=== PATIENT | female | born 1955 | race African-American/Black ===

== ENCOUNTER 2019-01-14 20:48 | Observation (INO) ==
[2019-01-14] MEDS ORDERED: TYLENOL PO ONE (21:28)
[2019-01-14 22:25] LABS: INFLUENZA A NEGATIVE (NEGATIVE); INFLUENZA B NEGATIVE (NEGATIVE)
[2019-01-14 23:43] LABS: BASO# 0.02 X1000 (0.0-0.2); BASO% 0.2 % (0.0-0.8); EOS# 0.01 X1000 (0.0-0.7); EOS% 0.1 % (0.0-10.0); IMM GRAN# 0.03 X1000 (0.0-0.04); IMM GRAN% 0.2 % (0.0-0.5); LYMPH# 1.19 X1000 (1.2-3.4); LYMPH% 9.8 % (20.5-51.1); MCHC 32.5 g/dL (33-37); MCV 70.8 FL (81-99); MONO# 1.06 X1000 (0.11-0.59); MONO% 8.7 % (1.7-9.3); MPV 10.4 FL (7.4-10.4); NEUT# 9.88 X1000 (1.4-6.5); PLT 262 X1000 (130-400); RBC 5.65 XMIL (4.2-5.4); RDW 17.7 % (11.5-14.5); WBC 12.19 X1000 (4.8-10.8)
[2019-01-14 23:56] LABS: URINE SOURCE CATH
[2019-01-15 00:02] LABS: ALBUMIN 3.5 g/dL (3.5-5.0); CALCIUM 8.7 mg/dL (8.8-10.2); CREATININE 1.1 mg/dL (0.5-0.9); POTASSIUM 4.2 mmol/L (3.5-5.1); TOTAL BILIRUBIN 0.8 mg/dL (0.20-1.00)
[2019-01-15 00:06] LABS: BANDS 2 % (0-1); LYMPHS 6 % (21-51); MONO 4 % (1-9); SEGS 88 % (42-75)
[2019-01-15 00:07] LABS: ANISOCYTOSIS OCCASIONAL; HYPOCHROM OCCASIONAL; POLYCHROM OCCASIONAL
[2019-01-15 00:08] LABS: MICROCYTOSIS OCCASIONAL; POIKILOCYTOSIS OCCASIONAL; STOMATOCYTES OCCASIONAL; TARGET CELLS OCCASIONAL
[2019-01-15] MEDS ORDERED: NS IV ONE (00:11)
[2019-01-15 00:39] LABS: BILIRUBIN URINE NEGATIVE (NEGATIVE); BLOOD URINE 2+ (NEGATIVE); CLARITY CLEAR (CLEAR); COLOR YELLOW; GLUCOSE URINE NEGATIVE (NEGATIVE); KETONE URINE 1+(Small) mg/dL (NEGATIVE); LEUKOCYTES URINE NEGATIVE (NEGATIVE); NITRITE URINE NEGATIVE (NEGATIVE); PROTEIN URINE NEGATIVE (NEGATIVE); UROBILINOGEN URINE NORMAL
[2019-01-15 00:45] LABS: URINE BACTERIA 2+ /HFP; URINE EPITHELIAL CELLS <10 /HPF (<10); URINE RBC <10 /HPF (<10); URINE WBC <10 /HPF (<10)
[2019-01-15] MEDS ORDERED: VANCOMYCIN IV PER PHARMACY MISC SCH (01:15)
--- NOTE | 2019-01-15 01:22 | PROVIDER DOCUMENTATION ---
This chart was entered by Teetee Flanagan Scribe, acting as scribe for Heri Mosqueda CRNP. HPI-General Adult - General Chief Complaint: Fever Stated Complaint: pain all over Time Seen by Provider: 01/14/19 21:54 Source: patient Allergies/Adverse Reactions: Patient Allergies Allergy/AdvReac Type Severity Reaction Status Date / Time Penicillins Allergy Intermediate "welts" Verified 01/14/19 22:11 Home Medications: Home Medication List Medication Instructions Recorded Confirmed Last Taken Type Bisoprolol Fumarate [Zebeta] 5 mg PO BID 06/24/12 01/14/19 01/18/18 11:00 History Irbesartan [Avapro] 300 mg PO DAILY 06/24/12 01/14/19 01/18/18 11:00 History PRAVAstatin [Pravachol] 40 mg PO QHS 06/24/12 01/14/19 01/17/18 01:00 History Tizanidine HCl [Zanaflex] 2 mg PO BID PRN 06/24/12 01/14/19 01/17/18 01:00 History Topiramate [Topamax] 50 mg PO QHS 06/24/12 01/14/19 01/17/18 01:00 History Trazodone [Desyrel] 50 mg PO HS PRN PRN 01/03/13 01/14/19 01/17/18 01:00 History Albuterol Sulfate Inhaler 2 puff INH Q4H PRN #1 inhaler 05/27/13 01/14/19 02/04/17 20:00 Rx [Ventolin Hfa] Furosemide [Lasix] 80 mg PO DAILY 06/27/13 01/14/19 01/18/18 11:00 History Alprazolam [Xanax] 0.5 mg PO QHS 09/30/13 01/14/19 01/17/18 01:00 History Cyclobenzaprine [Flexeril] 10 mg PO Q6H PRN PRN #20 tablet 09/20/14 01/14/19 01/18/18 11:00 Rx Tramadol HCl [Ultram] 50 mg PO Q6H PRN PRN 09/20/14 01/14/19 01/17/18 01:00 History Zolpidem C.r. [Ambien Cr] 6.25 mg PO QHS 08/03/15 01/14/19 01/17/18 01:00 History Allopurinol 100 mg PO HS 03/07/16 01/14/19 01/17/18 01:00 History Indomethacin 50 mg PO BID #10 capsule 03/07/16 01/14/19 01/18/18 11:00 Rx Metoclopramide [Reglan] 5 mg PO BID PRN 03/07/16 01/14/19 06/02/16 08:00 History Budesonide/Formoterol Inhaler 2 puff INH RTBID 02/05/17 01/14/19 01/18/18 11:00 History [Symbicort 160/4.5 Microgm Inhaler] Ergocalciferol (Vitamin D2) 50,000 unit PO DAILY 02/05/17 01/14/19 01/18/18 11:00 History [Vitamin D] Febuxostat [Uloric] 1 tab PO EVERY OTHER DAY 02/05/17 01/14/19 01/18/18 11:00 History Pantoprazole [Protonix] 40 mg PO DAILY 02/05/17 01/14/19 01/18/18 11:00 History Gabapentin [Neurontin] 300 mg PO DAILY #14 cap 11/23/17 01/14/19 01/18/18 11:00 Rx Meloxicam [Mobic] 15 mg PO DAILY #20 tab 01/18/18 01/14/19 Unknown Rx Cetirizine HCl [Zyrtec] 10 mg PO DAILY 07/30/18 01/14/19 Unknown History Meclizine [Antivert] 25 mg PO TID PRN 07/30/18 01/14/19 Unknown History Potassium Chloride 10 meq PO BID 07/30/18 01/14/19 Unknown History Naproxen [Naprosyn] 500 mg PO BID #20 tab 10/03/18 01/14/19 Unknown Rx - History of Present Illness -Gen Adult Nature of Presenting Problems: pt is a 64 yr old female presenting via EMS with complaint of weakness, bilateral knee pain and swelling, pt reports hx of chronic bilateral knee pain. pt also complains of cough. pt denies chest pain or shortness of breath. hx of chronic knee pain. pt reports unable to stand or ambulate today due to pain/weakness Location of Pain/Injury: reports: lower extremity (bilateral knee pain) Pain Radiation: reports: no radiation Quality of Pain: reports: aching, tightness Severity: reports: severe Onset/Duration: reports: gradual Timing: reports: getting worse Context/Activities at Onset: reports: rest Modifying Factors: improves with: movement (worsens pain) Associated Symptoms: reports: cough, fatigue, fever/chills, joint pain, weakness , other (edema). denies: back/neck pain, chest pain, headaches, shortness of breath Similar Symptoms Previously?: Yes Review of Systems - Adult - REVIEW OF SYSTEMS - ADULT Constitutional: reports: fever, fatique Eyes: denies: discharge, redness Ears, Nose, Mouth & Throat: denies: ear pain, sinus problem, throat pain Cardiovascular: reports: edema. denies: chest pain, palpitations, syncope Respiratory: reports: chronic cough, cough. denies: shortness of breath, wheezing Gastrointestinal: denies: abdominal pain, diarrhea, nausea, vomiting Genitourinary: denies: dysuria, frequency, flank pain Musculoskeletal: reports: joint pain, muscle aches, muscle weakness. denies: back pain Integumentary: reports: no symptoms reported Neurological: denies: dizziness/vertigo, syncope Psychiatric: reports: no symptoms reported Endocrine: reports: no symptoms reported Hematologic/Lymphatic: reports: no symptoms reported Allergic/Immunologic: reports: no symptoms reported All Other Systems: Reviewed and Negative Past History - Adult - PAST MEDICAL HISTORY-ADULT Review of Records: reports: Old Records Reviewed, Nursing Assessment Review, Medications Reviewed, Social history reviewed & non-contributory. Major Childhood Illnesses: reports: denies history Cardiovascular: reports: denies history, CHF, HTN Respiratory: reports: denies history, asthma, COPD, sleep apnea Gastrointestinal: reports: denies history, GERD Obstetrical/Gynecological: reports: denies history Genitourinary: reports: denies history, kidney disease (CKD) Musculoskeletal: reports: denies history, other (gout; neuropathy; Bakers cysts in bilateral knees) Neurological: reports: denies history, headaches/migraines, TIA Psychiatric: reports: anxiety, bipolar Endocrine/Immune: reports: denies history, Diabetes Other Conditions: reports: denies history - PRIOR SURGERIES/PROCEDURES Surgical/Procedure History: reports: hysterectomy, BTL, , tonsillectomy , other (stomach ulcers; hemorrhoids ) - IMMUNIZATION STATUS Childhood Immunizations: See Nurse Assessment Flu Vaccine: See Nurse Assessment - FAMILY HISTORY Family History: reviewed, not pertinent - SOCIAL HISTORY Smoking: quit greater than 1 year Substance Use: denies Living Situation: family Physical Exam-General - PHYSICAL EXAM-ADULT Initial Vital Signs Reviewed: Yes - CONSTITUTIONAL General Appearance: alert, no apparent distress, obese - EYES Eyes: PERRL/EOMI - HEAD, EARS, NOSE, MOUTH & THROAT HENMT: normocephalic/atraumatic, moist mucous membranes, normal ENT inspection - NECK Neck: non-tender, full range of motion, supple, normal inspection - RESPIRATORY Respiratory: chest non-tender, lungs clear, normal breath sounds, no pleuratic chest pain, no respiratory distress, no accessory muscle use - CARDIOVASCULAR Cardiovascular: normal peripheral pulses, tachycardia, other (BLE edema) - GASTROINTESTINAL (ABDOMEN) Abdominal Exam: normal bowel sounds, non tender, soft - LYMPHATIC Lymphatic: no adenopathy - MUSCULOSKELETAL Back Exam: normal inspection, no CVA tenderness, no vertebral tenderness Extremity: inflammation (bilateral knees), pedal edema. negative: normal gait (pt refuses to stand or attempt to ambulate) - SKIN Integumentary: normal color, normal turgor, warm/dry - NEUROLOGIC Neurologic: grossly normal - PSYCHIATRIC Psych/Mental Status: normal mood/affect Progress - PLAN OF CARE/RESULTS Progress/Plan/Lab Results: Vital Signs - 8 hr 01/14/19 21:23 Temperature 101.9 F H Pulse Rate 114 H Respiratory Rate 18 Blood Pressure 162/101 O2 Sat by Pulse Oximetry 94 L Laboratory Results - last 24 hr 01/14/19 21:27 Influenza A (Rapid) NEGATIVE Influenza B (Rapid) NEGATIVE Orders Category Date Time Status INFLUENZA SCREEN PL Stat Lab 01/14/19 21:27 Completed Acetaminophen [Tylenol] Med 01/14/19 21:28 Discontinued 1,000 mg PO NOW ONE COnsulted Dr. Olivo recommended IV vanc pharmacy dosing, and agreed to admit the pt. Result Diagrams: 01/14/19 23:25 01/14/19 23:25 - CONSULTS/PCP/HOSPITALIST Notification #1 *Consult/PCP/Hospitalist*: Dr. Olivo Time Discussed: 01:20 Reason/Comments: Admission for SIRS Consult Disposition: Admit Departure - Departure Date of Disposition Decision: 01/15/19 Time of Disposition Decision: 01:20 DIAGNOSIS: SIRS (systemic inflammatory response syndrome), Knee pain, acute Disposition: ADMITTED INPATIENT 09 Certified Medical Emergency: Emergent Condition: Stable Referrals and Follow-Ups: None,PCP [Primary Care Provider] - - Critical Care Note This patient required my direct & personal management of CC.: No Attestation - Physician/ ROBBIE Attestation Patient care was provided by Advanced Practice Provider:: Yes Advanced Practice Provider:: Heri Mosqueda Advanced Practice Provider documentation review:: The Mid-level provider documentation, treatment plan and medical decision making was reviewed by the physician who agrees with all treatment and medical decision making by the MLP. The physician spent face to face time with patient:: No Advanced Practice Provider documentation review:: Supervising physician onsite and consulted in the evaluation and care of this patient. The physician did not have a face to face encounter with the patient. This chart was documented by the indicated scribe, (Teetee Flanagan Scribe) and accurately reflects the services I performed and decisions made by , Heri Mosqueda CRNP, as attested by the provider's signature.
[2019-01-15] MEDS ORDERED: VANCOMYCIN 1 GM/NS 1 GM/250 ML IVPB IV ONE ×2 (02:00→04:00)
[2019-01-15] MEDS ORDERED: VANCOMYCIN 500 MG/NS 500 MG/100 ML IVPB IV ONE (05:00)
--- NOTE | 2019-01-15 07:01 | Diag Imaging Result Doc PS360 ---
EXAM: KNEE 3 VIEWS LEFT - 01/14/2019 HISTORY: pain TECHNIQUE: Left knee three views COMPARISON: 05/20/2015 FINDINGS: There are moderate to severe osteoarthritic changes, with substantial progression compared to prior. There is no fracture or dislocation identified. IMPRESSION: Moderate to severe osteoarthritic changes. Electronically signed by Ravi Mendez 01/15/2019 6:58 AM
--- NOTE | 2019-01-15 07:03 | Diag Imaging Result Doc PS360 ---
EXAM: KNEE 3 VIEWS RIGHT - 01/14/2019 HISTORY: pain TECHNIQUE: Right knee three views COMPARISON: None. FINDINGS: There are moderate osteoarthritic changes. These are most prominent at the patellofemoral joint. There is no fracture or dislocation identified. There is thickening of the suprapatellar bursa suggesting joint effusion. There are a few atherosclerotic calcifications noted. IMPRESSION: Moderate osteoarthritic changes. Electronically signed by Ravi Mendez 01/15/2019 7:01 AM
--- NOTE | 2019-01-15 07:06 | Diag Imaging Result Doc PS360 ---
EXAM: CHEST-2 VIEWS - 01/14/2019 HISTORY: cough, fever TECHNIQUE: Chest two views COMPARISON: 07/30/2018 FINDINGS: Heart size is normal. There is some tortuosity of the thoracic aorta similar to prior. Inspiration is mildly shallow. The lungs appear clear. There is no consolidation, pleural effusion, or pneumothorax identified. There is some thoracic spondylosis noted. IMPRESSION: Mildly shallow inspiration. No other evidence of acute disease. Electronically signed by Ravi Mendez 01/15/2019 7:03 AM
[2019-01-15 07:44] LABS: MAGNESIUM 1.5 mg/dL (1.5-2.7)
[2019-01-15 08:12] LABS: INR 1.1; PROTIME 14.8 Seconds (11.0-16.0)
[2019-01-15 08:13] LABS: PTT 32.8 Seconds (22.3-41.8)
[2019-01-15] MEDS: NORCO-7.5 PO PRN ×2 (09:17→20:40)
[2019-01-15] MEDS ORDERED: ZOFRAN IV PRN (09:33)
[2019-01-15] MEDS ORDERED: TYLENOL PO PRN (09:33)
[2019-01-15] MEDS ORDERED: DESYREL PO PRN (09:34)
[2019-01-15] MEDS ORDERED: FLEXERIL PO PRN (09:34)
[2019-01-15] MEDS ORDERED: ANTIVERT PO PRN (09:34)
[2019-01-15] MEDS ORDERED: ULTRAM PO PRN (09:34)
--- NOTE | 2019-01-15 10:09 | Diag Imaging Result Doc PS360 ---
EXAM: CHEST-PORTABLE - 01/15/2019 HISTORY: follow up TECHNIQUE: Portable chest COMPARISON: 01/24/2019 FINDINGS: Heart size is normal. Inspiration is mildly shallow, the projection is mildly lordotic. Lungs appear grossly clear. There is no substantial pleural effusion or pneumothorax identified. IMPRESSION: Mildly shallow inspiration. No other discrete evidence of acute disease. Electronically signed by Ravi Mendez 01/15/2019 10:06 AM
[2019-01-15 11:01] LABS: BASO# 0.02 X1000 (0.0-0.2); BASO% 0.2 % (0.0-0.8); EOS# 0.06 X1000 (0.0-0.7); EOS% 0.7 % (0.0-10.0); HEMATOCRIT 35.4 % (37.0-47.0); HEMOGLOBIN 11.2 g/dL (12.0-16.0); IMM GRAN# 0.02 X1000 (0.0-0.04); IMM GRAN% 0.2 % (0.0-0.5); LYMPH# 1.73 X1000 (1.2-3.4); LYMPH% 19.1 % (20.5-51.1); MCH 22.8 PG (27-31); MCHC 31.6 g/dL (33-37); MONO% 8.8 % (1.7-9.3); MPV 10.3 FL (7.4-10.4); NEUT# 6.44 X1000 (1.4-6.5); PLT 235 X1000 (130-400); RBC 4.92 XMIL (4.2-5.4); RDW 17.9 % (11.5-14.5); WBC 9.07 X1000 (4.8-10.8)
[2019-01-15 11:20] LABS: AGAP 9; ALBUMIN 2.8 g/dL (3.5-5.0); ALKALINE PHOSPHATASE 168 U/L (32-104); BUN 15 mg/dL (8-22); CALCIUM 8.3 mg/dL (8.8-10.2); CHLORIDE 106 mmol/L (98-107); COSMO 282; CREATININE 0.9 mg/dL (0.5-0.9); ESTIMATED GFR > 60; GLUCOSE 159 mg/dL (70-104); GOT 15 U/L (10-30); GPT 17 U/L (10-36); POTASSIUM 3.8 mmol/L (3.5-5.1); SODIUM 139 mmol/L (136-145); TCO2 23 mmol/L (25-35); TOTAL PROTEIN 6.3 g/dL (6.3-8.3)
[2019-01-15 12:00] LABS: ANISOCYTOSIS 2+; LYMPHS 18 % (21-51); MICROCYTOSIS 1+; MONO 5 % (1-9); SEGS 77 % (42-75)
[2019-01-15] MEDS: NS 1,000 ML IV SCH (13:12)
[2019-01-15] MEDS: LEVAQUIN 500 MG/D5W 500 MG/100 ML IVPB IV SCH (13:59)
--- NOTE | 2019-01-15 14:01 | HISTORY AND PHYSICAL ---
PRIMARY CARE PROVIDER: None. ORTHOPEDIST: Dr. Pepper in [place]. CHIEF COMPLAINT: Bilateral knee pain, shallow breathing, and palpitations. HISTORY OF PRESENT ILLNESS: Ms. Le is a 64-year-old female with a past medical history of diabetes mellitus type 2, diabetic peripheral neuropathy, chronic kidney disease, hypertension, asthma, dyslipidemia, chronic pain, GERD, obstructive sleep apnea, depression and anxiety, obesity, and peptic ulcer disease with history of previous GI bleed, who reported to the ED for bilateral knee pain, shallow breathing and heart palpitations. She reported that sometimes her bilateral knee pain is so bad she is unable to walk at home. She has had some urine urgency and frequency, but denies any dysuria. She denies any feeling like she had a fever or chills. However, in the ER last night, she had a fever of 101.9. She was found to be tachycardic with a slightly elevated white count, and a urinalysis that had 2+ bacteria. She was admitted for probable sepsis and given IV fluids and initiated on IV antibiotics. She did gave several normal lactates. Her white count is back down to normal. Flu A and B were negative. Chest x-ray was clear. Left knee x-ray showed moderate to severe osteoarthritic changes. Right knee x-ray shows moderate osteoarthritic changes. She denies any headache, fever, chills, chest pain, shortness of breath at this time, nausea, vomiting, or diarrhea, and will continue treatment on medical telemetry. REVIEW OF SYSTEMS: A 14 point review of systems completely negative except for those mentioned in HPI. PAST MEDICAL HISTORY: 1. Diabetes mellitus type 2. 2. Diabetic peripheral neuropathy. 3. Chronic kidney disease. 4. Hypertension. 5. Asthma. 6. Dyslipidemia. 7. Chronic pain. 8. Gastroesophageal reflux disease. 9. Obstructive sleep apnea. 10. Depression and anxiety. 11. Morbid obesity. 12. Peptic ulcer disease with history of previous GI bleed. 13. Bilateral osteoarthritic knees. The patient uses a cardiac walker to get around at home as at times she cannot walk. She has been told to lose 50 pounds, and then she will start having surgery with Dr. Pepper. PAST SURGICAL HISTORY: 1. Hysterectomy. 2. Partial gastrectomy with vagotomy. 3. Hemorrhoidectomy. SOCIAL HISTORY: She lives with her . No tobacco, alcohol or illicit drug use. FAMILY HISTORY: Reviewed and noncontributory. ALLERGIES: Penicillin. HOME MEDICATIONS: 1. Atenolol inhaler 2 puffs inhaled q.4 hours p.r.n. shortness of breath. 2. Lasix 80 mg p.o. daily. 3. Reglan 5 mg p.o. b.i.d. p.r.n. nausea. 4. Potassium chloride 10 mEq p.o. b.i.d. 5. Allopurinol 100 mg p.o. at bedtime. 6. Xanax 0.5 mg p.o. at bedtime. 7. Zebeta 5 mg p.o. b.i.d. 8. Symbicort 160-4.5 mcg inhaler 2 puffs inhaled RT b.i.d. 9. Zyrtec 10 mg p.o. daily. 10. Flexeril 10 mg p.o. q.6 hours p.r.n. pain. 11. Vitamin D 15291 units p.o. daily. 12. Uloric 1 tab p.o. every other day. 13. Neurontin 300 mg p.o. daily. 14. Indomethacin 50 mg p.o. b.i.d. 15. Antivert 25 mg p.o. t.i.d. dizziness p.r.n. 16. Mobic 15 mg p.o. daily. 17. Naproxen 500 mg p.o. b.i.d. 18. Protonix 40 mg p.o. daily. 19. Pravachol 40 mg p.o. at bedtime. 20. Zanaflex 2 mg p.o. b.i.d. 21. Topamax 50 mg p.o. at bedtime. 22. Ultram 50 mg p.o. q.6 hours. 23. Desyrel 50 mg p.o. at bedtime p.r.n. 24. Ambien CR 6.25 mg p.o. at bedtime. PHYSICAL EXAMINATION: VITAL SIGNS: Temperature is 98.5 degrees, heart rate 95, respirations 20, blood pressure 122/58 and O2 is 97% on room air. GENERAL: Ms. Le is a pleasant 64-year-old female who is lying in the bed in no acute distress. HEENT: Atraumatic, normocephalic. PERRL. NECK: Supple. Trachea midline. CARDIOVASCULAR: S1 and S2 appreciated. Questionable murmur. The patient did not recollect having any history of murmur. PULMONARY: Clear bilaterally. Bilaterally decreased in the bases. GI: Soft, obese, nontender, and nondistended. Positive bowel sounds 4 quadrants. EXTREMITIES: Negative for edema. No clubbing. No cyanosis. NEUROLOGIC: No focal deficits noted. DIAGNOSTIC DATA: 1. Left knee x-ray moderate to severe osteoarthritic changes. Right knee moderate osteoarthritic changes. 2. Initial chest x-ray is mildly shallow inspiration, no evidence of acute disease. Followup chest x-ray showed mildly shallow inspiration, No other discrete evidence of acute disease. LABORATORY DATA: Initial white count 12, this morning it is 9. Hemoglobin and hematocrit 11 and 35, platelet count 235,000. Sodium 139, potassium 3.8, BUN 15, creatinine 0.9. Blood glucose is 159, Mag 1.5. Troponin less than 0.010. Alkaline phosphatase 168. Urinalysis 2+ bacteria. Flu A and B negative. ASSESSMENT AND PLAN: 1. Questionable sepsis on arrival. Patient was febrile, tachycardic, did have signs of infection with urinary tract infection. She was initiated on vancomycin and IV fluids. We will add levofloxacin. All lactate levels have been normal. We will await the urine culture. 2. Bilateral knee pain. Patient does have evidence of osteoarthritic changes to both knees. The patient is unable to walk at times. It is so bad this is being handled by her orthopedist, Dr. Pepper in [place]. She said once she loses 50 pounds, she will start having surgery to correct. We will continue on her home medications for her pain. 3. Urinary tract infection. The patient does have urgency and frequency, but no dysuria. We will continue with IV antibiotics. 4. Shortness of breath with heart palpitations. We will continue on her home breathing treatments, supplemental O2 as needed. She is no longer having palpitations or shortness of breath. We could check an echocardiogram as well as an EKG. 5. Diabetes mellitus, diet controlled. We will continue with diabetic diet. 6. Anxiety and depression. We will continue home medications. 7. Diabetic neuropathy. We will continue gabapentin. 8. Morbid obesity. The patient is aware she needs to lose weight. She has been working on it with her diet. She is not able to be really physically active secondary to her knee issues. 9. Further recommendation to follow physician evaluation, laboratory and diagnostic data. Dictated by LEONEL Jerome for Bairon Olivo MD cc: Bairon Olivo MD
--- NOTE | 2019-01-15 17:52 | EKG Report ---
Test Performed on : 01/15/2019 3:54:16 PM Test Reason : palpatations Blood Pressure : / mmHG Vent. Rate : 081 BPM Atrial Rate : 081 BPM P-R Int : 154 ms QRS Dur : 086 ms QT Int : 396 ms P-R-T Axes : 049 -13 095 degrees QTc Int : 460 ms Normal sinus rhythm. Possible Left atrial enlargement Left ventricular hypertrophy Nonspecific T wave abnormality Abnormal ECG When compared with ECG of 30-JUL-2018 19:43, Nonspecific T wave abnormality, worse in Lateral leads Confirmed by Isidro Burton MD ([id number]) on 01/20/2019 11:14:25 AM
--- NOTE | 2019-01-15 19:03 | PROGRESS NOTE ---
DATE: 01/15/2019 The patient came in for evaluation. She had a fever and was complaining of bilateral knee pain. Her temp was 101.9 degrees. Workup has really been negative. She does complain of pain in both her knees, mostly on the left. Her plain films of the knee are unremarkable except for arthritis. She is obese, BMI of 43, but she has changes on her hand exam that to me suggest possible rheumatoid arthritis, possibly gout. She has fairly significant MCP involvement of her 2nd, 3rd, and 4th MCP joints. She also has DIP inflammation and sponginess. This is bilateral. She has subluxation associated with it. Though, in any case, the patient will be admitted for treatment. It is not clear that she has, but we will continue to monitor. Occasionally gout can produce fevers. This could be an acute inflammatory arthritis, but we will get basic parameters and follow possible to infectious arthritis. I will try to get ortho to evaluate for tapping her left knee or possible injection. I do not think she has a septic knee, but it is uncertain at this point. We will continue to follow closely. She is on allopurinol so she probably does have gout. She did not tell me she had gout per se, but we will continue to follow closely. cc: Bairon Olivo MD
--- NOTE | 2019-01-15 19:40 | Diag Imaging Result Doc PS360 ---
EXAM: HAND 2 VIEWS LEFT HISTORY: swelling/rheumatoid TECHNIQUE: Left hand, two views COMPARISON: None. FINDINGS: The bones are osteopenic. No fracture. No dislocation. Mild narrowing to the proximal and distal interphalangeal joints. Small cystic changes in the distal third metacarpal. Possible cyst in the proximal portion of the proximal phalanx of the third finger. Narrowing to the carpal bones. No subluxation. IMPRESSION: Mild arthritis. Findings are not specific for rheumatoid arthritis. Electronically signed by Shawn Núñez 01/15/2019 7:38 PM
--- NOTE | 2019-01-15 19:43 | Diag Imaging Result Doc PS360 ---
EXAM: HAND 2 VIEWS RIGHT HISTORY: swelling, ra TECHNIQUE: Right hand, two views COMPARISON: None. FINDINGS: The bones are osteopenic. This proximal and distal Colon joint space narrowing. There is multiple joint space narrowing in the carpal bones as well. The multiple cysts in the carpal bones and first metacarpal. Small bone erosions to the proximal interphalangeal joints of the second and third fingers. No subluxation. IMPRESSION: Moderate arthritis. Findings are not specific for rheumatoid arthritis. Electronically signed by Shawn Núñez 01/15/2019 7:41 PM
[2019-01-15] MEDS: SYMBICORT 160/4.5 MICROGM INHALER INH SCH (19:45)
[2019-01-15 20:22] LABS: URIC ACID 6.7 mg/dL (2.4-5.7)
[2019-01-15] MEDS: AMBIEN PO SCH (20:33)
[2019-01-15] MEDS: ZEBETA PO SCH (20:33)
[2019-01-15] MEDS: PRAVACHOL PO SCH (20:33)
[2019-01-15] MEDS: ZANAFLEX PO SCH (20:34)
[2019-01-15] MEDS: XANAX PO SCH (20:34)
[2019-01-15] MEDS: TOPAMAX PO SCH (20:34)
[2019-01-15] MEDS: LODINE PO SCH (20:40)
[2019-01-15] MEDS ORDERED: ZYLOPRIM PO SCH (21:00)
[2019-01-15] MEDS ORDERED: INDOMETHACIN 50 MG PO SCH (21:00)
[2019-01-15] MEDS ORDERED: NAPROSYN PO SCH (21:00)
[2019-01-16] MEDS: NS 1,000 ML IV SCH ×2 (00:13→18:15)
[2019-01-16] MEDS: VANCOMYCIN 2,400 MG in NS 500 ML IV SCH (05:13)
[2019-01-16] MEDS: PROTONIX PO SCH ×2 (05:13→06:00)
[2019-01-16] MEDS: SYMBICORT 160/4.5 MICROGM INHALER INH SCH ×2 (07:36→19:56)
[2019-01-16 07:55] LABS: ALBUMIN 2.7 g/dL (3.5-5.0); CALCIUM 8.4 mg/dL (8.8-10.2); POTASSIUM 3.9 mmol/L (3.5-5.1); TOTAL BILIRUBIN 0.4 mg/dL (0.20-1.00); TOTAL PROTEIN 6.2 g/dL (6.3-8.3)
[2019-01-16 07:56] LABS: BASO# 0.01 X1000 (0.0-0.2); BASO% 0.1 % (0.0-0.8); EOS# 0.17 X1000 (0.0-0.7); EOS% 2.5 % (0.0-10.0); HEMATOCRIT 34.4 % (37.0-47.0); HEMOGLOBIN 10.8 g/dL (12.0-16.0); IMM GRAN# 0.02 X1000 (0.0-0.04); IMM GRAN% 0.3 % (0.0-0.5); LYMPH# 2.17 X1000 (1.2-3.4); LYMPH% 31.5 % (20.5-51.1); MCH 22.9 PG (27-31); MCHC 31.4 g/dL (33-37); MCV 72.9 FL (81-99); MONO% 14.5 % (1.7-9.3); MPV 10.4 FL (7.4-10.4); NEUT# 3.51 X1000 (1.4-6.5); NEUT% 51.1 % (42.2-75.2); PLT 231 X1000 (130-400); RBC 4.72 XMIL (4.2-5.4); RDW 18.1 % (11.5-14.5); WBC 6.88 X1000 (4.8-10.8)
[2019-01-16] MEDS: ZANAFLEX PO SCH ×2 (08:38→22:01)
[2019-01-16] MEDS: LODINE PO SCH ×2 (08:39→18:14)
[2019-01-16] MEDS: ZEBETA PO SCH (08:39)
[2019-01-16] MEDS: ZYRTEC PO SCH (08:39)
[2019-01-16] MEDS: NEURONTIN PO SCH (08:39)
[2019-01-16] MEDS: NORCO-7.5 PO PRN ×2 (08:39→19:04)
[2019-01-16] MEDS ORDERED: AVAPRO PO SCH (09:00)
[2019-01-16] MEDS ORDERED: VITAMIN D PO SCH (09:00)
[2019-01-16] MEDS ORDERED: MELOXICAM 15 MG PO SCH (09:00)
[2019-01-16] MEDS: LEVAQUIN 500 MG/D5W 500 MG/100 ML IVPB IV SCH (13:44)
[2019-01-16 14:34] LABS: RA TEST > 650 IU/mL (0-14)
[2019-01-16] MEDS ORDERED: SOLU-MEDROL IV ONE (15:09)
[2019-01-16] MEDS ORDERED: COLCRYS PO ONE (15:10)
--- NOTE | 2019-01-16 15:35 | PROGRESS NOTE ---
DATE: 01/16/2019 SUBJECTIVE: Patient has no complaints. OBJECTIVE: Blood pressure 96/51, heart rate 59, respiratory rate 20, and temperature 97.8 degrees.Cardiovascular: Regular rate and rhythm. Pulmonary: Bilateral breath sounds. Clear to auscultation. GI: Soft, nontender, and nondistended. Bowel sounds are positive. LABORATORY DATA: White count 6, hemoglobin and hematocrit 10 and 34, and platelets 231,000. Rest of her testing is unremarkable as far as electrolytes creatinine is 1. However, her uric acid is elevated at 6.7 which is elevated. Her CRP is 246 which is very elevated. Her sedimentation rate is 51. ASSESSMENT: I do think she has an inflammatory arthritis, although it is most likely at this point I think it is going to be gouty arthritis, polyarticular gout, and that may be what is causing her overall issues. 1. Acute polyarticular gout. We will add colchicine. Hold her allopurinol and Uloric because I think she is probably having an acute attack. Give her some IV steroids. We are going to get ortho to see if they can do an effusion tap on the left knee just to rule out septic arthritis, but I think that is unlikely. 2. Hypertension which has kind of been on the low side. Actually, her blood pressures have been a bit on the low side so I am going to hold some of her medicines and adjust them. We will continue IV fluids. 3. Diabetes appears to be relatively well controlled. We will continue to monitor. DISPOSITION: Anticipate discharge soon. I am not sure about today versus in the morning, but we will continue to follow. cc: Bairon Olivo MD
--- NOTE | 2019-01-16 20:10 | CONSULTATION ---
DATE OF CONSULTATION: 01/16/2019 CHIEF COMPLAINT: Bilateral knee pain. HISTORY OF PRESENT ILLNESS: Ms. Le is a 64-year-old female who was admitted per the medicine service for some shortness of breath, palpitations and bilateral knee pain and fever. Orthopedics was consulted to look at the left knee and possibly tap it for possible septic arthritis versus gouty arthritis. She has been hurting in both knees for several months, and the left knee is the worst. She has seen Dr. Pepper in the past who has said he would replace the knee, but she did need lose some weight so she would be a better surgical candidate. PAST MEDICAL HISTORY: Type 2 diabetes, chronic kidney disease, diabetic peripheral neuropathy, reflux, peptic ulcer disease, osteoarthritis, hypertension. PAST SURGICAL HISTORY: Hysterectomy, partial gastrectomy with vagotomy and hemorrhoidectomy. SOCIAL HISTORY: She lives with her . Denies any tobacco use. FAMILY HISTORY: Noncontributory. ALLERGIES: To penicillin. MEDICATIONS: Per the medical record. PHYSICAL EXAMINATION: General: Very pleasant female. She is lying in bed in no acute distress. Head and Neck: Normocephalic, atraumatic. Respiratory: Nonlabored breathing. Cardiovascular: Regular pulse. Abdomen: Nondistended. Left knee exam: She has tenderness to palpation at the knee. She has pain with range of motion. No skin ulcerations or abrasions seen. There is no erythema around the area. There is no warmth to it. She has 2+ DP pulse. IMAGING: Radiographs of the left knee show osteoarthritic changes mainly to the lateral compartment. ASSESSMENT: Left osteoarthritis in knee. PLAN: I discussed with Ms. Le about tapping the knee today to draw fluid, and we can send that to the lab for cell count, crystals and Gram stain, anaerobic and aerobic cultures. She gave verbal consent to proceed. I used ChloraPrep to clean off the lateral aspect of the knee. I used an 18-gauge needle and aspirated the knee, got about 10 mL of yellow-colored fluid off. It did not look purulent. The patient tolerated the procedure well with no complications. We will sent it to the lab for analysis. It did not look infected. It looked more inflammatory, but we will follow all her labs and cultures to see what comes back. cc: Daniel Saenz MD
[2019-01-16] MEDS: AMBIEN PO SCH (22:00)
[2019-01-16] MEDS: PRAVACHOL PO SCH (22:00)
[2019-01-16] MEDS: XANAX PO SCH (22:01)
[2019-01-16] MEDS: TOPAMAX PO SCH (22:01)
[2019-01-16] MEDS: COLCRYS PO SCH (22:13)
[2019-01-17 01:20] LABS: BODY FLUID SOURCE SYNOVIAL FLUID
[2019-01-17 01:21] LABS: WBC BF 11869 /cumm
[2019-01-17] MEDS: NORCO-7.5 PO PRN (01:57)
[2019-01-17 02:00] LABS: MONOS 20 %; POLYS 80 %
[2019-01-17] MEDS: PROTONIX PO SCH ×2 (05:55→06:04)
[2019-01-17] MEDS: VANCOMYCIN 2,400 MG in NS 500 ML IV SCH (05:55)
[2019-01-17 07:19] LABS: HEMATOCRIT 36.6 % (37.0-47.0); HEMOGLOBIN 11.3 g/dL (12.0-16.0); IMM GRAN# 0.02 X1000 (0.0-0.04); IMM GRAN% 0.3 % (0.0-0.5); LYMPH# 0.71 X1000 (1.2-3.4); LYMPH% 9.4 % (20.5-51.1); MCH 22.6 PG (27-31); MCHC 30.9 g/dL (33-37); MCV 73.1 FL (81-99); MONO# 0.21 X1000 (0.11-0.59); MONO% 2.8 % (1.7-9.3); MPV 10.3 FL (7.4-10.4); NEUT# 6.59 X1000 (1.4-6.5); NEUT% 87.5 % (42.2-75.2); PLT 267 X1000 (130-400); RBC 5.01 XMIL (4.2-5.4); RDW 18.2 % (11.5-14.5); WBC 7.53 X1000 (4.8-10.8)
[2019-01-17] MEDS: NS 1,000 ML IV SCH (07:29)
[2019-01-17] MEDS: SYMBICORT 160/4.5 MICROGM INHALER INH SCH ×2 (07:56→19:19)
[2019-01-17 07:57] LABS: HEMOGLOBIN A1C 5.6 % (4.8-6.0)
[2019-01-17 08:15] LABS: AGAP 11; BUN 20 mg/dL (8-22); CALCIUM 8.6 mg/dL (8.8-10.2); CHLORIDE 108 mmol/L (98-107); COSMO 286; ESTIMATED GFR > 60; GLUCOSE 207 mg/dL (70-104); POTASSIUM 4.3 mmol/L (3.5-5.1); SODIUM 139 mmol/L (136-145); TCO2 20 mmol/L (25-35)
[2019-01-17] MEDS ORDERED: ULORIC PO SCH (09:00)
[2019-01-17] MEDS: ZYRTEC PO SCH (09:24)
[2019-01-17] MEDS: ZANAFLEX PO SCH ×2 (09:25→20:42)
[2019-01-17] MEDS: AVAPRO PO SCH (09:26)
[2019-01-17] MEDS: COLCRYS PO SCH ×2 (09:26→20:44)
[2019-01-17] MEDS: NEURONTIN PO SCH (09:26)
[2019-01-17] MEDS: LODINE PO SCH ×2 (09:32→17:07)
[2019-01-17 09:35] LABS: LYMPHS 12 % (21-51); MONO 2 % (1-9); SEGS 86 % (42-75)
[2019-01-17] MEDS: PREDNISONE PO SCH (10:52)
[2019-01-17] MEDS: LEVAQUIN 500 MG/D5W 500 MG/100 ML IVPB IV SCH (12:56)
--- NOTE | 2019-01-17 16:03 | PROGRESS NOTE ---
DATE: 01/17/2019 SUBJECTIVE: She is much brighter today and seems happier, but she is still having difficulty walking like she cannot walk more than she has to. She cannot bear weight on that left leg. OBJECTIVE: Vital Signs: Blood pressure 145/71, heart rate 72, respiratory rate 20, temperature 97.9 degrees and 100% on room air. Cardiovascular: Regular rate and rhythm. Pulmonary: Bilateral breath sounds. Clear to auscultation. GI: Soft, nontender, and nondistended. Bowel sounds are positive. LABORATORY DATA: White count is normal. Creatinine is 1. PROBLEM LIST: Polyarticular inflammatory arthritis. I do think a component is gout, but at this point, I do think a component is rheumatological. I feel like most likely rheumatoid. Her rheumatoid factor is very high which is greater than 650 which is the highest I have seen on its own, although the initial report was 112, which I think is also high so she has high uric acid. Her CRP is 246. Her sedimentation rate is 51. Clinically, she is better on steroids. I did add some colchicine, and I have taken her off her Uloric. I do think she needs a rheumatology evaluation. We will try to set that up prior to discharge. I do not think this is a septic joint. At this point, the fever may just be from her inflammatory arthritis. She has not had any further fever. All of her cultures are negative, and her Gram stain was pending, but there has not been anything grown out. Her cell count showed 11,869 white blood cells, which is elevated, but 80% polys, 20% monos. No crystals. I think most likely this is inflammatory arthritis. She clearly has MCP and DIP involvement. To me, she has some degree of at least developing subluxation which I think this is rheumatoid arthritis in addition to gout, but we will get a rheumatological follow-up as an outpatient. We are going to work on strength training with her inability to walk. I do not know if she is going. We will have to see how things look. Her joint inflammation is almost bordering [place] [address] which is usually 20,000, but 80% is her segs. I still think this is most likely inflammatory. Cultures are negative. We are going to watch her 1 more day and see how she does. DISPOSITION: Pending her clinical status, anticipate discharge tomorrow. I am going to go ahead and start prednisone which we have already done. We will continue to follow. Anticipate discharge tomorrow. cc: Bairon Olivo MD
[2019-01-17 20:13] VITALS: BP 148/65
[2019-01-17] MEDS: AMBIEN PO SCH (20:43)
[2019-01-17] MEDS: XANAX PO SCH (20:43)
[2019-01-17] MEDS: PRAVACHOL PO SCH (20:43)
[2019-01-17] MEDS: TOPAMAX PO SCH (20:44)
[2019-01-18] MEDS: NORCO-7.5 PO PRN (01:16)
[2019-01-18] MEDS: PROTONIX PO SCH (06:24)
[2019-01-18] MEDS: SYMBICORT 160/4.5 MICROGM INHALER INH SCH (07:34)
[2019-01-18 07:48] LABS: BASO# 0.01 X1000 (0.0-0.2); BASO% 0.1 % (0.0-0.8); EOS# 0.04 X1000 (0.0-0.7); EOS% 0.4 % (0.0-10.0); HEMATOCRIT 34.3 % (37.0-47.0); HEMOGLOBIN 10.5 g/dL (12.0-16.0); IMM GRAN# 0.04 X1000 (0.0-0.04); IMM GRAN% 0.4 % (0.0-0.5); LYMPH% 13.4 % (20.5-51.1); MCH 22.2 PG (27-31); MCHC 30.6 g/dL (33-37); MCV 72.7 FL (81-99); MONO% 7.1 % (1.7-9.3); MPV 10.3 FL (7.4-10.4); NEUT# 8.84 X1000 (1.4-6.5); NEUT% 78.6 % (42.2-75.2); PLT 295 X1000 (130-400); RBC 4.72 XMIL (4.2-5.4); RDW 18.1 % (11.5-14.5); WBC 11.23 X1000 (4.8-10.8)
[2019-01-18 08:24] LABS: ANISOCYTOSIS 1+; LYMPHS 7 % (21-51); MICROCYTOSIS 1+; MONO 7 % (1-9); SEGS 86 % (42-75)
[2019-01-18] MEDS: COLCRYS PO SCH (08:50)
[2019-01-18] MEDS: LODINE PO SCH (08:50)
[2019-01-18] MEDS: AVAPRO PO SCH (08:50)
[2019-01-18] MEDS: PREDNISONE PO SCH (08:50)
[2019-01-18] MEDS: NEURONTIN PO SCH (08:51)
[2019-01-18] MEDS: ZYRTEC PO SCH (08:51)
[2019-01-18] MEDS: ZANAFLEX PO SCH (08:51)
--- NOTE | 2019-01-18 12:43 | DISCHARGE SUMMARY ---
ADMISSION DATE: 01/15/2019 DISCHARGE DATE: DISCHARGE ADDENDUM: On day of discharge, she is looking well. She is more comfortable. She is kind of brighter. Her discharge medications, the only other new medications I am going to do is a prednisone taper. We will keep her on some colchicine. She needs to hold her Uloric. For some reason, she is on Uloric and allopurinol. I do not think she needs both of those, probably Uloric until her gout attack is resolved. She has got more flexibility in her joints. Now, her data is to me very consistent with rheumatoid arthritis. Her anticyclic citrullinated peptide is very positive. It is 227. Her REMEDIOS is positive, but that may just be a confounder and her rheumatoid factor is greater than 650. There is no growth from her joint aspirations. I think this is inflammatory arthritis. It is very urgent that she follows up with a shrimp boat captain because I do not think she really should be on methotrexate and things of that nature, which I am not going to start on her at this point without someone being able follow that closely. We will do a prednisone taper, slow taper, and continue the Lodine. Continue her other medications. I do not think this is infectious. She did have a fever, but I think it is just due to polyarticular gout and polyarticular inflammatory arthritis that has not been treated. She needs to see Dr. Clark. TIME SPENT: 32 minute discharge. This is an addendum with LEONEL Cabezas. cc: MD Dr. Micheal Hooper
--- NOTE | 2019-01-18 20:23 | DISCHARGE SUMMARY ---
ADMISSION DATE: 01/15/2019 DISCHARGE DATE: 01/18/2019 ADMISSION DIAGNOSES: 1. Questionable sepsis on arrival. 2. Bilateral knee pain. 3. Urinary tract infection. 4. Shortness of breath with heart palpitations. 5. Diabetes mellitus, diet controlled. 6. Anxiety/depression. 7. Diabetic neuropathy. 8. Morbid obesity. DISCHARGE DIAGNOSES: 1. Acute polyarticular gout. 2. Hypertension. 3. Diabetes, well controlled. CONSULTATIONS: Dr. Saenz was consulted due to the bilateral knee pain. Assessment from him was left osteoarthritis in the knee. She did have the knee tapped to allow for cell count, crystals, gram stain, anaerobic and aerobic cultures. This was performed at the bedside. SURGERIES/PROCEDURES: Left knee effusion tapped and fluids drawn for cell count, crystals, gram stain, anaerobic and aerobic cultures, in which 10 mL of yellow-colored fluid was sent that did not look purulent but looked more inflammatory. HOSPITAL COURSE: Ms. Madhuri Le is a 64-year-old female who presented to the emergency department with complaints of bilateral knee pain, shallow breathing and heart palpitations. She reported that sometimes her knees were so bad she is unable to walk at home. She also had some complaints of urinary urgency and frequency but denied any dysuria. The urine came back as negative for any type of infection, but she had a fever of 101.9 when she came in. She was started on IV fluids and antibiotics. She had cultures performed. The x-ray of the knees, specifically the left one, showed moderate to severe osteoarthritic changes, and on the right it was moderate, but infection workup had essentially remained negative, and it was felt to be mostly inflammation from the osteoarthritis in the knees. Orthopaedic Surgery, Dr. Saenz, saw her on January 16. He did a fluid withdrawal from the left knee and sent that off for cell count, crystals, gram-negative, anaerobic and aerobic cultures, and the fluid was yellow colored. The gram stains showed no growth as a preliminary. The white count showed 11,869. The polynuclear white count was 80. The mononuclear count was 20. Crystals were negative. She did have a rheumatoid factor that was greater than 650 that was drawn, and it was felt that there is some sort of rheumatological factor in her arthritis. She was initiated on steroids, colchicine, and etodolac, and antibiotics were discontinued given the fact that there was no obvious source of infection. DISCHARGE VITAL SIGNS: Temperature 98.1, heart rate 71, respiratory rate 18, blood pressure 148/65, saturation 97% on room air. LABORATORY DATA: White blood cells 11,000, hemoglobin 10, hematocrit 34, platelet count 295. No BMP today, but yesterday her sodium was 139, potassium 4.3, BUN 20, creatinine 1.0. Glucose today is 145. Calcium yesterday was 8.6. She had a hemoglobin A1c of 5.6. Her last rheumatoid factor was greater than 650 on January 15. PERTINENT IMAGING: On the she had 2 x-rays on her knees. In the left knee, there were moderate to severe osteoarthritic changes, and in the right knee moderate osteoarthritic changes. Her chest x-ray showed mildly shallow inspiration but no evidence of acute disease. On the she had another chest x-ray which showed the same thing. She had a hand x-ray on the left with mild arthritis findings, but not specific for rheumatoid arthritis, and then on the right hand the same as the left, moderate arthritis. EKG on admission showed normal sinus rhythm, rate of 81, QTc of 460. DISCHARGE MEDICATIONS: 1. Ambien 6.25 mg p.o. nightly. 2. Pravachol 40 mg p.o. nightly. 3. Topamax 50 mg p.o. nightly. 4. Xanax 0.5 mg p.o. at bedtime. 5. Allopurinol (may be changed to colchicine). 6. Antivert 25 mg p.o. t.i.d. 7. Avapro 300 mg p.o. daily. 8. Desyrel 50 mg p.o. nightly p.r.n. 9. Indomethacin 50 mg p.o. twice daily 10.Lasix 80 mg p.o. daily. 11.Potassium chloride 10 mEq p.o. twice daily 12.Protonix 40 mg p.o. daily. 13.Reglan 5 mg p.o. twice daily p.r.n. 14.Budesonide/formoterol inhaler 2 puffs twice daily. 15.Uloric (I am not sure if that is going to be continued). 16.Ultram 50 mg p.o. every 6 hours p.r.n. 17.Vitamin D2 at 50,000 units p.o. daily. 18.Zanaflex 10 mg p.o. twice daily. 19.Zebeta 5 mg p.o. twice daily. 20.Zyrtec 20 mg p.o. daily. ACTIVITY: As tolerated. DIET: Diabetic diet. DISCHARGE FOLLOWUP: Will have to get her to follow up with a instructor dancing as an outpatient for further workup. DISCHARGE INSTRUCTIONS: Take medications as prescribed. If there is any change in condition, contact your physician and/or return to the emergency department. Changes may include but are not limited to: Shortness of breath, increased fatigue, excessive bleeding, unexplained weight loss or gain, unimaginable pain, or signs or symptoms of infection. DISCHARGE DISPOSITION: Home. Dictated by LEONEL Cabezas for Bairon Olivo MD cc: LEONEL Cabezas MD
== END 2019-01-18 12:34 | disposition home or self-care (01) ==
LOC: P.ED 20:48 → P.MEDSURG 20:48
PROVIDERS: ATTEND Internal Medicine
CPT/HCPCS: 36415; 71010; 71020; 71045; 71046; 73120; 73562; 80048; 80053; 81001; 82550; 82948; 83036; 83516; 83605; 83735; 84484; 84550; 85025; 85610; 85651; 85730; 86038; 86039; 86140; 86200; 86235; 86431; 87040; 87070; 87088; 87275; 87276; 87804; 89051; 93005; 93010; 93306; 94640; 94761; 94799; 96361; 96365; 96366; 97163; 99285; A9270; J1956; J2930; J3370; J7030; J7040; J7506; J7512; XXXXX

== ENCOUNTER 2019-08-12 12:29 | Observation (INO) ==
[2019-08-12 13:37] LABS: BASO# 0.01 X1000 (0.0-0.2); BASO% 0.1 % (0.0-0.8); EOS# 0.03 X1000 (0.0-0.7); EOS% 0.2 % (0.0-10.0); HEMATOCRIT 43.5 % (37.0-47.0); HEMOGLOBIN 13.5 g/dL (12.0-16.0); IMM GRAN# 0.06 X1000 (0.0-0.04); IMM GRAN% 0.5 % (0.0-0.5); LYMPH# 2.17 X1000 (1.2-3.4); LYMPH% 16.6 % (20.5-51.1); MCH 23.5 PG (27-31); MCV 75.8 FL (81-99); MONO# 1.43 X1000 (0.11-0.59); MONO% 10.9 % (1.7-9.3); MPV 10.4 FL (7.4-10.4); NEUT% 71.7 % (42.2-75.2); PLT 238 X1000 (130-400); RBC 5.74 XMIL (4.2-5.4); RDW 15.5 % (11.5-14.5)
--- NOTE | 2019-08-12 13:47 | Diag Imaging Result Doc PS360 ---
CHEST-2 VIEWS - 08/12/2019 INDICATION: sob, cough COMPARISON: 08/09/2019 FINDINGS: There are some stable linear atelectasis or scarring in the left upper lobe. No new infiltrates. Heart size is normal. No pneumothorax or pleural effusion. IMPRESSION: Stable linear atelectasis or scarring in the left upper lobe. Electronically signed by Ovi Anand 08/12/2019 1:44 PM
[2019-08-12 13:55] LABS: ALBUMIN 3.5 g/dL (3.5-5.0); CALCIUM 9.5 mg/dL (8.8-10.2); CREATININE 1.7 mg/dL (0.5-0.9); MAGNESIUM 1.9 mg/dL (1.5-2.7); TOTAL BILIRUBIN 0.4 mg/dL (0.20-1.00); TOTAL PROTEIN 7.4 g/dL (6.3-8.3)
--- NOTE | 2019-08-12 14:01 | EKG Report ---
Test Performed on : 08/12/2019 1:25:17 PM Test Reason : sob Blood Pressure : / mmHG Vent. Rate : 065 BPM Atrial Rate : 065 BPM P-R Int : 154 ms QRS Dur : 088 ms QT Int : 436 ms P-R-T Axes : 028 -11 047 degrees QTc Int : 453 ms Normal sinus rhythm. Voltage criteria for left ventricular hypertrophy Abnormal ECG When compared with ECG of 09-AUG-2019 19:33, (Unconfirmed) Non-specific change in ST segment in Lateral leads Nonspecific T wave abnormality has replaced inverted T waves in Lateral leads Unconfirmed Result
[2019-08-12] MEDS ORDERED: NS 1,000 ML IV ONE (14:06)
--- NOTE | 2019-08-12 16:40 | PROVIDER DOCUMENTATION ---
This chart was entered by Dayana Bay Scribe, acting as scribe for Josey Chou CRNP. HPI-General Adult - General Chief Complaint: General Adult Stated Complaint: MUSCLE SPASM Time Seen by Provider: 08/12/19 12:44 Source: patient Allergies/Adverse Reactions: Patient Allergies Allergy/AdvReac Type Severity Reaction Status Date / Time Penicillins Allergy Intermediate "welts" Verified 08/09/19 17:13 Home Medications: Home Medication List Medication Instructions Recorded Confirmed Last Taken Type PRAVAstatin [Pravachol] 40 mg PO QHS 06/24/12 08/12/19 08/08/19 20:00 History Albuterol Sulfate Inhaler 2 puff INH Q4H PRN #1 inhaler 05/27/13 08/12/19 08/08/19 20:00 Rx [Ventolin Hfa] Furosemide [Lasix] 80 mg PO DAILY 06/27/13 08/12/19 08/09/19 08:00 History Budesonide/Formoterol Inhaler 2 puff INH RTBID 02/05/17 08/12/19 08/08/19 20:00 History [Symbicort 160/4.5 Microgm Inhaler] Ergocalciferol (Vitamin D2) 50,000 unit PO DAILY 02/05/17 08/12/19 08/09/19 08:00 History [Vitamin D] Febuxostat [Uloric] 1 tab PO TID 02/05/17 08/12/19 08/08/19 20:00 History Bisoprolol [Zebeta] 5 mg PO BID 01/15/19 08/12/19 08/08/19 20:00 History Etodolac [Lodine] 400 mg PO BID CC #60 tab 01/18/19 08/12/19 08/08/19 20:00 Rx Colchicine/Probenecid [Colbenemid] 1 dose PO DAILY 08/09/19 08/12/19 08/09/19 08:00 History Doxycycline 100 mg PO BID 10 Days #20 tab 08/09/19 08/12/19 Unknown Rx Fluticasone/Salmet 250/50 INH 1 dose INH DAILY 08/09/19 08/12/19 08/09/19 08:00 History [Advair 250/50 Diskus] Prednisone 1 tab PO DAILY 08/09/19 08/12/19 08/09/19 08:00 History Chlorthalidone 25 mg PO DAILY 08/12/19 08/12/19 Unknown History Hydralazine [Apresoline] 25 mg PO DAILY 08/12/19 08/12/19 Unknown History Metoprolol Succinate E.r. [Toprol 50 mg PO DAILY 08/12/19 08/12/19 Unknown History Xl] - History of Present Illness -Gen Adult Nature of Presenting Problems: Patient is a 64 year old female who presents to the ED via EMS with generalized muscle cramps. States cramps have been present for 4 days ago. Does not report shortness of breath. Location of Pain/Injury: reports: generalized Pain Radiation: reports: no radiation Quality of Pain: reports: cramping Severity: reports: mild Onset/Duration: reports: 4 days ago Timing: reports: still present Context/Activities at Onset: reports: light activity Associated Symptoms: reports: denies symptoms Similar Symptoms Previously?: Yes Recently seen or treated by another doctor?: No Review of Systems - Adult - REVIEW OF SYSTEMS - ADULT Constitutional: reports: no symptoms reported Eyes: reports: no symptoms reported Ears, Nose, Mouth & Throat: reports: no symptoms reported Cardiovascular: reports: no symptoms reported Respiratory: reports: no symptoms reported Gastrointestinal: reports: no symptoms reported Genitourinary: reports: no symptoms reported Musculoskeletal: reports: see HPI, other (generalized muscle cramping). denies: back pain, muscle weakness Integumentary: reports: no symptoms reported Neurological: reports: no symptoms reported Psychiatric: reports: no symptoms reported Endocrine: reports: no symptoms reported Hematologic/Lymphatic: reports: no symptoms reported Allergic/Immunologic: reports: no symptoms reported All Other Systems: Reviewed and Negative Past History - Adult - PAST MEDICAL HISTORY-ADULT Review of Records: reports: Old Records Reviewed, Nursing Assessment Review, Medications Reviewed, Social history reviewed & non-contributory. Major Childhood Illnesses: reports: denies history Cardiovascular: reports: CHF, HTN, hyperlipidemia Respiratory: reports: asthma, COPD, sleep apnea Gastrointestinal: reports: GERD, ulcer Obstetrical/Gynecological: reports: denies history Genitourinary: reports: kidney disease (CKD) Musculoskeletal: reports: other (gout; neuropathy; Bakers cysts in bilateral knees) Neurological: reports: headaches/migraines, TIA Psychiatric: reports: anxiety, bipolar Endocrine/Immune: reports: Diabetes Other Conditions: reports: denies history - PRIOR SURGERIES/PROCEDURES Surgical/Procedure History: reports: hysterectomy, BTL, , tonsillectomy , other (stomach ulcers; hemorrhoids ) - IMMUNIZATION STATUS Childhood Immunizations: See Nurse Assessment Flu Vaccine: See Nurse Assessment - FAMILY HISTORY Family History: reviewed, not pertinent - SOCIAL HISTORY Smoking: cigarettes (former) Substance Use: denies Physical Exam-General - PHYSICAL EXAM-ADULT Initial Vital Signs Reviewed: Yes - CONSTITUTIONAL General Appearance: alert, no apparent distress, anxious, other (tearful. hyperventilating). negative: obtunded - HEAD, EARS, NOSE, MOUTH & THROAT HENMT: normocephalic/atraumatic, moist mucous membranes. negative: angioedema - RESPIRATORY Respiratory: chest non-tender, lungs clear, increased rate, other (hyperventilating). negative: accessory muscle use, crackles, rhonchi - CARDIOVASCULAR Cardiovascular: normal peripheral pulses, regular rate, rhythm. negative: tachycardia - GASTROINTESTINAL (ABDOMEN) Abdominal Exam: normal bowel sounds, non tender, soft. negative: guarding, rigid - MUSCULOSKELETAL Extremity: normal inspection. negative: deformity, erythema - SKIN Integumentary: normal color, normal turgor, warm/dry. negative: diaphoresis, pallor - NEUROLOGIC Neurologic: grossly normal, abnormal care coordination manager II-XII. negative: aphasia, facial droop - PSYCHIATRIC Psych/Mental Status: oriented x 3, anxious, tearful Progress - PLAN OF CARE/RESULTS Progress/Plan/Lab Results: Vital Signs - 8 hr 08/12/19 12:33 Temperature 98 F Pulse Rate 70 Respiratory Rate 18 Blood Pressure 127/77 O2 Sat by Pulse Oximetry 95 Orders Category Date Time Status Nursing- Obtain EKG ONCE Care 08/12/19 13:09 Active CHEST-2 VIEWS [RAD] Stat Exams 08/12/19 13:09 Ordered CBC WITH DIFF [HEME] Stat Lab 08/12/19 13:09 Ordered COMPREHENSIVE METABOLIC PANEL [CHEM] Stat Lab 08/12/19 13:09 Uncollected MAGNESIUM [CHEM] Stat Lab 08/12/19 13:09 Uncollected EKG [EKG] Stat Ther 08/12/19 13:09 Ordered Result Diagrams: 08/12/19 13:26 08/12/19 13:26 - EKG 1 Time of EKG reading by physician:: 13:25 EKG Read and Signed by:: Caleb Champion EKG Interpretation (*Must complete 3 of following elements*): Abnormal Rate: 65 Rhythm: normal sinus rhythm [place]: normal QRS: LVH (voltage criteria) MA Interval: normal Comments: abnormal ECG - XRAY 1 XRAY Study: Chest Impression: See EMR Report (CHEST-2 VIEWS - 08/12/2019 INDICATION: sob, cough COMPARISON: 08/09/2019 FINDINGS: There are some stable linear atelectasis or scarring in the left upper lobe. No new infiltrates. Heart size is normal. No pneumothorax or pleural effusion. IMPRESSION: Stable linear atelectasis or scarring in the left upper lobe. Electronically signed by Ovi Anand 2018 1:44 PM) - CONSULTS/PCP/HOSPITALIST Notification #1 *Consult/PCP/Hospitalist*: Dr Brandon Time Discussed: 16:39 Consult Disposition: Will see in ED, Admit Departure - Departure Date of Disposition Decision: 08/12/19 Time of Disposition Decision: 16:39 DIAGNOSIS: SOB (shortness of breath), D-dimer, elevated, Renal insufficiency Disposition: ADMITTED INPATIENT 09 Certified Medical Emergency: Emergent Condition: Stable Referrals and Follow-Ups: None,PCP [Primary Care Provider] - - Critical Care Note This patient required my direct & personal management of CC.: No Attestation - Physician/ ROBBIE Attestation Patient care was provided by Advanced Practice Provider:: Yes Advanced Practice Provider:: Josey Chou Advanced Practice Provider documentation review:: The Mid-level provider documentation, treatment plan and medical decision making was reviewed by the physician who agrees with all treatment and medical decision making by the MLP. The physician spent face to face time with patient:: No Advanced Practice Provider documentation review:: Supervising physician onsite and consulted in the evaluation and care of this patient. The physician did not have a face to face encounter with the patient. This chart was documented by the rose scribe, (Dayana Bay Scribe) and accurately reflects the services I performed and decisions made by me, Josey Chou, LEONEL, as attested by the provider's signature.
--- NOTE | 2019-08-12 18:23 | HISTORY AND PHYSICAL ---
PRIMARY CARE PHYSICIAN: Dr. Norma Canas. CHIEF COMPLAINT: Bilateral lower extremity muscle cramps that started on Monday and progressively worsened. Also reports some shortness of breath and a nonproductive cough. HISTORY OF PRESENTING ILLNESS: This is a 64-year-old female who presents to [facility] ER via EMS with complaints of bilateral lower extremity muscle cramps that began on Monday and progressively worsened. Also states she has had some mild shortness of breath and a nonproductive cough. Her workup in the emergency room showed a D-dimer of 0.61, white blood cell count of 13.10, BUN of 34, and creatinine of 1.7 with a baseline a creatinine that is usually no more than 1.3. Chest x-ray showed stable linear atelectasis or scarring in the left upper lobe. EKG showed normal sinus rhythm at 65, but she will be admitted for further evaluation and treatment. PAST MEDICAL HISTORY: Diabetes type 2, diet controlled, diabetic peripheral neuropathy, chronic kidney disease, hypertension, asthma, dyslipidemia, chronic pain, GERD, obstructive sleep apnea, depression and anxiety, morbid obesity, peptic ulcer disease with a history of previous GI bleed, and bilateral osteoarthritic knees and uses a cardiac walker at times when she cannot walk. PAST SURGICAL HISTORY: Hysterectomy, partial gastrectomy with vagotomy, and hemorrhoidectomy. FAMILY HISTORY: Reviewed and noncontributory. SOCIAL HISTORY: She currently lives with her . Denies any tobacco, alcohol, or illicit drug use. ALLERGIES: To penicillin. HOME MEDICATIONS: She takes a Ventolin inhaler 2 puff inhalation q.4 hours p.r.n., Zebeta 5 mg p.o. b.i.d., Symbicort 160/4.5 two puffs inhalation b.i.d., chlorthalidone 25 mg p.o. daily, Col- Benemid 500/0.5 one dose p.o. daily, doxycycline 100 mg p.o. b.i.d. (is being held), vitamin D2 06108 units p.o. daily, Lodine 400 mg p.o. b.i.d. (will be held), Uloric 80 mg p.o. t.i.d., Advair 250/50 one inhalation daily, Lasix 80 mg p.o. daily (will be held), Apresoline 25 mg p.o. daily, metoprolol 50 mg p.o. daily, pravastatin 40 mg p.o. at bedtime, and prednisone 5 mg p.o. daily. LABORATORY DATA: Showed a white blood cell count of 13.10, hemoglobin 13.5, hematocrit 43.5, platelets 238,000. D-dimer of 0.61. Sodium 139, potassium 4, chloride 101, CO2 25, BUN of 34, creatinine 1.7, glucose 89, magnesium of 1.9. Troponin less than 0.010. Chest x-ray showed stable linear atelectasis or scarring in the left upper lobe. EKG: Normal sinus rhythm at 65. REVIEW OF SYSTEMS: She denied any fever, chills, blurred vision, dizziness, chest pain. She has had a nonproductive cough, shortness of breath. Denied any abdominal pain, constipation, diarrhea, burning or hurting with urination. She did have bilateral lower extremity muscle cramping. PHYSICAL EXAMINATION: VITAL SIGNS: On arrival she had a temperature of 98 degrees, a pulse of 70, respirations 18, blood pressure 127/77, saturating 95% on room air. GENERAL: This is a 64-year-old female, lying in the bed and answers questions appropriately. HENT: Normocephalic, atraumatic. Normal ENT inspection. Oropharynx and nares are clear. EYES: Pupils are equal, round, and reactive to light and accommodation. Extraocular movements are intact. NECK: Normal inspection. Normal range of motion. LUNGS: Clear to auscultation bilaterally with equal lung expansion and chest wall movement. HEART: With regular rate and rhythm. No murmurs, rubs, or gallops. ABDOMEN: Soft, nontender, nondistended. Bowel sounds are present x4 quadrants. MUSCULOSKELETAL: She had 5/5 strength x4 extremities. NEUROLOGICAL: The cranial nerves 2-12 appear grossly intact. ASSESSMENT: 1. Dyspnea. 2. Elevated D-dimer. 3. Bilateral lower extremity muscle cramping. 4. Acute kidney injury on chronic kidney disease. PLAN: She will be admitted to the medical unit, placed on telemetry. We will do bilateral lower extremity venous Doppler. Place on Lovenox 30 mg subcutaneous q.24 until we get a preliminary on her Doppler and then we may have to place her on 1 mg/kg if she has a DVT. We will place her on normal saline at 75 mL an hour. We will do a lung V/Q scan in the a.m. Continue home medications as previously identified. Hold any diuretics, NSAIDs, or SONAL and ARB inhibitors. Recheck a CBC and BMP in the a.m. Further orders after seen by attending. Dictated by LEONEL Tejeda for Uriel Duarte MD cc: LEONEL Tejeda MD Lindsay E. Smith, MD
[2019-08-12] MEDS ORDERED: ZOFRAN IV PRN (18:57)
[2019-08-12] MEDS ORDERED: TYLENOL PO PRN (18:57)
--- NOTE | 2019-08-12 19:05 | Vascular Study Report ---
Venous U/S Bilateral Legs - 08/12/2019 INDICATION: sob, leg cramps, + ddimer TECHNIQUE: COMPARISON: None FINDINGS: The veins of both lower extremities are fully compressible. There is normal color and pulse wave Doppler signal. Soft tissue echotexture is grossly normal. IMPRESSION: Negative exam. Electronically signed by Ovi Anand 08/12/2019 7:03 PM
[2019-08-12] MEDS: SYMBICORT 160/4.5 MICROGM INHALER INH SCH (19:39)
[2019-08-12] MEDS: ZEBETA PO SCH (20:11)
[2019-08-12] MEDS: LOVENOX SUBQ SCH (20:11)
[2019-08-12] MEDS: PRAVACHOL PO SCH (20:12)
[2019-08-12] MEDS: NS 1,000 ML IV SCH (20:12)
--- NOTE | 2019-08-13 02:40 | HISTORY AND PHYSICAL ---
HISTORY OF PRESENT ILLNESS: The patient presented to the hospital with muscle cramps for approximately 4 days. Notes that it has continued to worsen. She does have a history of asthma and hypertension as well as congestive heart failure, hyperlipidemia, history of bipolar, diabetes and migraines. Currently she is awake and alert. Notes that she is feeling better. We are going to admit her to the hospital, treat her for CHF exacerbation. We will monitor her D-dimer. Her ultrasound is negative, but she needs to have a V/Q scan. cc: Uriel Duarte MD
[2019-08-13 06:10] LABS: BASO# 0.02 X1000 (0.0-0.2); BASO% 0.2 % (0.0-0.8); EOS# 0.08 X1000 (0.0-0.7); EOS% 0.9 % (0.0-10.0); HEMATOCRIT 37.8 % (37.0-47.0); HEMOGLOBIN 11.2 g/dL (12.0-16.0); IMM GRAN# 0.02 X1000 (0.0-0.04); IMM GRAN% 0.2 % (0.0-0.5); LYMPH# 1.98 X1000 (1.2-3.4); LYMPH% 22.3 % (20.5-51.1); MCHC 29.6 g/dL (33-37); MCV 77.8 FL (81-99); MONO# 0.88 X1000 (0.11-0.59); MONO% 9.9 % (1.7-9.3); NEUT# 5.88 X1000 (1.4-6.5); NEUT% 66.5 % (42.2-75.2); PLT 197 X1000 (130-400); RBC 4.86 XMIL (4.2-5.4); RDW 15.8 % (11.5-14.5); WBC 8.86 X1000 (4.8-10.8)
[2019-08-13 06:27] LABS: CALCIUM 8.9 mg/dL (8.8-10.2); CREATININE 1.3 mg/dL (0.5-0.9)
[2019-08-13] MEDS: SYMBICORT 160/4.5 MICROGM INHALER INH SCH ×2 (07:40→19:40)
[2019-08-13] MEDS: ADVAIR 250/50 DISKUS INH SCH (07:44)
[2019-08-13] MEDS: HYGROTON PO SCH (08:42)
[2019-08-13] MEDS: TOPROL XL PO SCH (08:43)
[2019-08-13] MEDS: ZEBETA PO SCH ×2 (08:43→20:30)
[2019-08-13] MEDS: BENEMID PO SCH (08:43)
[2019-08-13] MEDS: ULORIC PO SCH (08:44)
[2019-08-13] MEDS: PREDNISONE PO SCH (08:44)
[2019-08-13] MEDS: COLCRYS PO SCH (08:44)
[2019-08-13] MEDS: NS 1,000 ML IV SCH (08:45)
[2019-08-13] MEDS: APRESOLINE PO SCH (08:45)
[2019-08-13] MEDS ORDERED: COLBENEMID PO SCH (09:00)
--- NOTE | 2019-08-13 09:52 | Diag Imaging Result Doc PS360 ---
LUNG SCAN / VQ - 08/12/2019 INDICATION: Elevated ddimer, Dyspnea TECHNIQUE: 40.7 mCi of DTPA was used for inhalation. 5.8 mCi of MAA was used for injection. COMPARISON: Chest x-ray from 08/12/2019 FINDINGS: There is normal localization pattern of the radiotracer's. There is no evidence of pulmonary perfusion defect. IMPRESSION: Negative for pulmonary embolism. Electronically signed by Ovi Anand 08/13/2019 9:49 AM
[2019-08-13] MEDS: VENTOLIN HFA INH PRN ×2 (12:08→19:41)
[2019-08-13] MEDS: LOVENOX SUBQ SCH (18:18)
[2019-08-13] MEDS: PRAVACHOL PO SCH (20:30)
[2019-08-14] MEDS: NS 1,000 ML IV SCH ×2 (01:35→12:00)
[2019-08-14] MEDS: VENTOLIN HFA INH PRN (06:06)
[2019-08-14] MEDS: SYMBICORT 160/4.5 MICROGM INHALER INH SCH (07:20)
[2019-08-14] MEDS: ADVAIR 250/50 DISKUS INH SCH (07:20)
[2019-08-14] MEDS: APRESOLINE PO SCH (08:31)
[2019-08-14] MEDS: ULORIC PO SCH (08:31)
[2019-08-14] MEDS: TOPROL XL PO SCH (08:31)
[2019-08-14] MEDS: PREDNISONE PO SCH (08:31)
[2019-08-14] MEDS: BENEMID PO SCH (08:32)
[2019-08-14] MEDS: HYGROTON PO SCH (08:32)
[2019-08-14] MEDS: ZEBETA PO SCH (08:32)
[2019-08-14] MEDS: COLCRYS PO SCH (08:32)
[2019-08-14 11:20] VITALS: BP 160/73
[2019-08-14 12:14] LABS: CALCIUM 9.2 mg/dL (8.8-10.2); CREATININE 1.1 mg/dL (0.5-0.9); POTASSIUM 3.9 mmol/L (3.5-5.1)
[2019-08-14] MEDS ORDERED: PNEUMOVAX 23 IM ONE (12:39)
--- NOTE | 2019-08-14 13:13 | DISCHARGE SUMMARY ---
ADMISSION DATE: 08/12/2019 DISCHARGE DATE: 08/14/2019 DISCHARGE DIAGNOSIS: 1. Chronic obstructive pulmonary disease exacerbation. 2. Venous thromboembolism negative workup. Briefly, this is a 64-year-old female, who presents with cramping and shortness of breath. Her D- dimer was elevated, creatinine is 1.7 with a baseline around 1.3. Her workup was unremarkable. She was admitted for dyspnea and VTE workup and acute kidney injury. Her lower extremity venous Dopplers were negative. Her V/Q was low probability. She was maintained on O2. She did have some wheezing and cough, a little bit of leukocytosis when she came in so we did end up discharging her on some doxycycline and continue her nebulizer and I bumped up her steroids for a little bit. I do think she is on chronic steroid therapy. As far as her acute kidney injury, initial creatinine 1.7, at discharge is 1.1. She was breathing comfortably 99% on room air. I did not appreciate significant wheezing on the day of discharge but will follow. DISCHARGE MEDICATIONS: Pravachol 40, hydralazine 25 daily, chlorthalidone 25 daily, colchicine probenecid 500/0.5 daily, Lasix 80 daily, Symbicort 60 b.i.d., Toprol XL 50 daily, Uloric 80 daily, vitamin D2 50,000 units daily, doxycycline 100 p.o. b.i.d. for 7 days, prednisone taper and then go back to 5 mg daily, and then albuterol inhaler. She was also at on her list on Zebeta, we need to stop the Lodine because of the kidney issues. She will need repeat basic in 1-2 weeks, return for worsening shortness of breath, follow up with her PCP, Dr. Norma Canas. cc: Bairon Olivo MD
--- NOTE | 2019-08-14 14:13 | PROGRESS NOTE ---
DATE: 08/13/2019 SUBJECTIVE: The patient has no major complaints. OBJECTIVE: Vital signs: Blood pressure is 124/65, heart rate 66, respiratory rate 18, temperature 97.8, 97% on room air. Cardiovascular: Regular rate and rhythm. Pulmonary: Bilateral breath sounds clear to auscultation. I did hear a little bit of rhonchi but not a lot of wheezing. LABORATORY DATA: White count is 8, hemoglobin and hematocrit 11 and 37, platelets 197. Creatinine is down to 1.3. PROBLEM LIST: 1. Dyspnea which is likely chronic obstructive pulmonary disease exacerbation. Her VTE workup was negative despite a positive D-dimer. We will continue treatment. This may be just a bronchitis. Will continue her breathing treatments and follow. 2. Acute kidney injury. Continue hydration and follow. She is on several medications that may be contributing to that and continue to monitor. DISPOSITION: I think if her kidney function improves and her breathing improves anticipate discharge tomorrow on the . cc: Bairon Olivo MD
[2019-08-16] MEDS ORDERED: VITAMIN D PO SCH (09:00)
== END 2019-08-14 13:26 | disposition home or self-care (01) ==
LOC: P.ED 12:29 → P.MEDSURG 18:24 → SUATTDRO 18:24 → INTOOBSV 18:24
PROVIDERS: ATTEND Internal Medicine